=== PATIENT | male | born 1995 | race African-American/Black ===

== ENCOUNTER 2017-03-31 16:11 | Emergency (ER) | payer SELFPAY ==
[2017-03-31] MEDS ORDERED: Ketorolac 60 MG/2 ML SDV IM ONE (16:35)
--- NOTE | 2017-03-31 16:42 | EDM.PDOC ---
ED HPI GENERAL MEDICAL PROBLEM - General Chief Complaint: General Stated Complaint: PT HAS TOOTHACHE Time Seen by Provider: 03/31/17 16:13 Source of Information: Reports: Patient History Limitations: Reports: No Limitations - History of Present Illness INITIAL COMMENTS - FREE TEXT/NARRATIVE: Presents to the ER with a 5 hour history of toothache in the right lower quadrant. The patient states he did not take anything for it but Tylenol. He reports stuttering pain over the last months to a year. He has an appointment with the dentist already made. No fever, swelling. Sensitive to cold and pressure. R Lower Dental Pain Score (Numeric/FACES): 8 - Related Data Allergies Allergy/AdvReac Type Severity Reaction Status Date / Time No Known Allergies Allergy Verified 03/31/17 16:25 Home Meds: Home Meds Clindamycin HCl 300 mg PO TID 10 Days #30 capsule 03/31/17 [Rx] Past Medical History - Past Surgical History GI Surgical History: Reports: Other (See Below) Other GI Surgeries/Procedures: spleenectomy Social & Family History - Family History Family Medical History: Noncontributory Endocrine/Metabolic: Reports: Diabetes, Type I - Tobacco Use Smoking Status *Q: Never Smoker Second Hand Smoke Exposure: No - Caffeine Use Caffeine Use: Reports: None - Recreational Drug Use Recreational Drug Use: No ED ROS GENERAL - Review of Systems Review Of Systems: ROS reveals no pertinent complaints other than HPI. Constitutional: Denies: Fever ED EXAM, GENERAL - Physical Exam Exam: See Below Exam Limited By: No Limitations General Appearance: Alert, No Apparent Distress, Other (Tooth #31 with some pitting and possible central decay. No gingivitis, jaw swelling.) Ears: Normal External Exam, Normal Canal, Normal TMs Nose: Normal Inspection Throat/Mouth: Normal Inspection, Other Head: Atraumatic, Normocephalic Neck: Normal Inspection Respiratory/Chest: No Respiratory Distress, Lungs Clear, Normal Breath Sounds Cardiovascular: Normal Peripheral Pulses, Regular Rate, Rhythm Neurological: Alert, Oriented Psychiatric: Normal Affect, Normal Mood Skin Exam: Warm, Dry, Intact, Normal Color, No Rash Lymphatic: No Adenopathy Course - Vital Signs Last Recorded V/S: Last Vital Signs Temp 36.9 C 03/31/17 16:22 Pulse 61 03/31/17 16:22 Resp 18 03/31/17 16:22 BP 143/75 H 03/31/17 16:22 Pulse Ox 98 03/31/17 16:22 - Orders/Labs/Meds Orders: Active Orders 24 hr Category Date Time Status Ketorolac [Toradol] Med 03/31/17 16:35 Once 60 mg IM ONETIME ONE Medication Orders Ketorolac Tromethamine (Toradol) 60 mg IM ONETIME ONE Stop: 03/31/17 16:36 Meds: Medications Generic Name Dose Route Start Last Admin Trade Name Gabi PRN Reason Stop Dose Admin Ketorolac Tromethamine 60 mg 03/31/17 16:35 Toradol IM 03/31/17 16:36 ONETIME ONE Departure - Departure Time of Disposition: 17:06 Disposition: Home, Self-Care 01 Condition: Good Clinical Impression: Pain, dental - Discharge Information Referrals: PCP,None [Primary Care Provider] - [facility] [Outside] [facility] [Outside] Additional Instructions: 1. Take your antibiotics three times a day for 10 days 2. Follow up with dentist as already scheduled 3. Ibuprofen 400 -600mg 3 times daily or Aleve 2 tabs twice daily as needed for pain 4. Return for fever, shaking chills, worsening pain or swelling. - My Orders Last 24 Hours: My Active Orders 03/31/17 16:35 Ketorolac [Toradol] 60 mg IM ONETIME ONE - Assessment/Plan Last 24 Hours: My Active Orders 03/31/17 16:35 Ketorolac [Toradol] 60 mg IM ONETIME ONE
[2017-03-31 17:44] VITALS: BP 135/78
== END 2017-03-31 17:44 | disposition home or self-care (01) ==
LOC: MW.ED 16:11
DX: K08.89 Other specified disorders of teeth and supporting structures (principal); Z90.81 Acquired absence of spleen
CPT/HCPCS: 96372; 99282; J1885

== ENCOUNTER 2017-07-06 15:54 | Emergency (ER) | payer MEDICAID ==
[2017-07-06 16:10] VITALS: BP 133/73
--- NOTE | 2017-07-06 16:12 | EDM.PDOC ---
ED HPI GENERAL MEDICAL PROBLEM - General Chief Complaint: Headache Stated Complaint: HEADACHES AND FEVER Time Seen by Provider: 07/06/17 16:00 Source of Information: Reports: Patient History Limitations: Reports: No Limitations - History of Present Illness INITIAL COMMENTS - FREE TEXT/NARRATIVE: History of present illness: []Patient has a history of migraine headaches and presents with typical migraine this morning. He had a fever last night with cold symptoms of congestion and sore throat. He took Excedrin migraine today which usually works for his headaches did not work today. He has no cough, vomiting, diarrhea or body aches. Review of systems: As per history of present illness and below otherwise all systems reviewed and negative. Past medical history: As per history of present illness and as reviewed below otherwise noncontributory. Surgical history: As per history of present illness and as reviewed below otherwise noncontributory. Social history: No reported history of drug or alcohol abuse. Family history: As per history of present illness and as reviewed below otherwise noncontributory. Physical exam: General: Well developed, well nourished in NAD HEENT: Atraumatic, normocephalic, pupils reactive, negative for conjunctival pallor or scleral icterus, mucous membranes moist, throat clear, neck supple, nontender, trachea midline. Lungs: Clear to auscultation, breath sounds equal bilaterally, chest nontender. Heart: S1S2, regular, negative for clicks, rubs, or JVD. Abdomen: Soft, nondistended, nontender. Negative for masses or hepatosplenomegaly. Negative for costovertebral tenderness. Pelvis: Stable nontender. Genitourinary: Deferred. Rectal: Deferred. Extremities: Atraumatic, negative for cords or calf pain. Neurovascular unremarkable. Neuro: Awake, alert, oriented. Cranial nerves II through XII unremarkable. Cerebellum unremarkable. Motor and sensory unremarkable throughout. Exam nonfocal. Diagnostics: [] Therapeutics: [] Impression: [] Plan: [] Definitive disposition and diagnosis as appropriate pending reevaluation and review of above. Right Face Pain Score (Numeric/FACES): 7 - Related Data Allergies Allergy/AdvReac Type Severity Reaction Status Date / Time No Known Allergies Allergy Verified 07/06/17 16:10 Home Meds: Home Meds . [No Known Home Meds] 07/06/17 [History] Past Medical History - Past Surgical History GI Surgical History: Reports: Other (See Below) Other GI Surgeries/Procedures: spleenectomy Social & Family History - Family History Family Medical History: Noncontributory Endocrine/Metabolic: Reports: Diabetes, Type I - Tobacco Use Smoking Status *Q: Never Smoker Second Hand Smoke Exposure: No - Caffeine Use Caffeine Use: Reports: None - Recreational Drug Use Recreational Drug Use: No ED ROS GENERAL - Review of Systems Review Of Systems: See Below (See history of present illness) - Physical Exam Exam: See Below (See history of present illness) Course - Vital Signs Last Recorded V/S: Last Vital Signs Temp 99.3 F 07/06/17 16:06 Pulse 86 07/06/17 16:06 Resp 16 07/06/17 16:06 BP 133/73 07/06/17 16:06 Pulse Ox 97 07/06/17 16:06 - Orders/Labs/Meds Meds: Medications Discontinued Medications Generic Name Dose Route Start Last Admin Trade Name Freq PRN Reason Stop Dose Admin Ketorolac Tromethamine 60 mg 07/06/17 16:16 07/06/17 16:24 Toradol IM 07/06/17 16:17 60 mg ONETIME ONE Administration Departure - Departure Time of Disposition: 18:12 Disposition: Home, Self-Care 01 Condition: Good Clinical Impression: Migraine - Discharge Information Instructions: Migraine Headache, [id number] Referrals: PCP,None [Primary Care Provider] - Forms: ED Department Discharge Additional Instructions: The following information is given to patients seen in the emergency department who are being discharged to home. This information is to outline your options for follow-up care. We provide all patients seen in our emergency department with a follow-up referral. The need for follow-up, as well as the timing and circumstances, are variable depending upon the specifics of your emergency department visit. If you don't have a primary care physician on staff, we will provide you with a referral. We always advise you to contact your personal physician following an emergency department visit to inform them of the circumstance of the visit and for follow-up with them and/or the need for any referrals to a consulting specialist. The emergency department will also refer you to a specialist when appropriate. This referral assures that you have the opportunity for follow-up care with a specialist. All of these measure are taken in an effort to provide you with optimal care, which includes your follow-up. Under all circumstances we always encourage you to contact your private physician who remains a resource for coordinating your care. When calling for follow-up care, please make the office aware that this follow-up is from your recent emergency room visit. If for any reason you are refused follow-up, please contact the [facility] at and asked to speak to the emergency department charge nurse. Tylenol Motrin for pain tramadol for severe pain follow-up with primary care return if symptoms worsen or change. [facility] [address] [place] [id number]
[2017-07-06] MEDS ORDERED: Ketorolac 60 MG/2 ML SDV IM ONE (16:16)
== END 2017-07-06 18:15 | disposition home or self-care (01) ==
LOC: MW.ED 15:54
DX: G43.909 Migraine, unspecified, not intractable, without status migrainosus (principal)
CPT/HCPCS: 96372; 99283; J1885